=== PATIENT | female | born 1935 | race African-American/Black ===

== ENCOUNTER 2016-07-18 09:33 | Outpatient (CLI) | payer MEDICARE ==
[2016-07-18 09:57] LABS: Basophils % (Auto) 1.4 % (0.0-1.8); Eosinophils % (Auto) 2.2 % (0.0-4.3); Hematocrit 45.7 % (30.3-42.9); Hemoglobin 15.2 gm/dl (10.1-14.3); Mean Corpuscular HGB Conc 33 % (30-34); Mean Corpuscular Hemoglobin 31 pg (28-32); Mean Corpuscular Volume 92 fl (79-97); Platelet Count 174 K/mm3 (140-440); Red Blood Count 4.99 M/mm3 (3.65-5.03); Red Cell Distribution Width 13.8 % (13.2-15.2); White Blood Count 6.5 K/mm3 (4.5-11.0)
[2016-07-18 10:15] LABS: Alanine Aminotransferase 54 units/L (7-56); Albumin 4.3 g/dL (3.9-5); Albumin/Globulin Ratio 1.4 %; Alkaline Phosphatase 82 units/L (35-129); Anion Gap 21 mmol/L; BUN/Creatinine Ratio 32.85; Blood Urea Nitrogen 23 mg/dL (7-17); Calcium 9.2 mg/dL (8.4-10.2); Carbon Dioxide 26 mmol/L (22-30); Chloride 100.5 mmol/L (98-107); Cholesterol 180 mg/dL (50-199); Creatine Kinase 192 units/L (30-135); Glucose 148 mg/dL (65-100); HDL Cholesterol 66 mg/dL (40-59); LDL Cholesterol,Direct 86 mg/dL (50-130); Potassium 3.8 mmol/L (3.6-5.0); Sodium 144 mmol/L (137-145); Total Protein 7.4 g/dL (6.3-8.2); Triglycerides 141 mg/dL (2-149)
[2016-07-20 16:14] LABS: Vitamin D, 25-OH, Total 28 ng/mL (30-100)
== END 2016-07-18 09:34 | disposition home or self-care (01) ==
LOC: LAB 09:33
PROVIDERS: ATTEND Internal Medicine
DX: I10 Essential (primary) hypertension (principal); E78.5 Hyperlipidemia, unspecified
CPT/HCPCS: 36415; 80053; 80061; 82306; 82550; 84443; 85025

== ENCOUNTER 2017-01-09 11:46 | Emergency (ER) | payer MEDICARE ==
[2017-01-09] MEDS ORDERED: NACL 0.9% 500 ML 500 ML IV ONE (12:03)
--- NOTE | 2017-01-09 12:24 | XRay Report ---
CHEST 2 VIEWS INDICATION: Shortness of breath. COMPARISON: 12/21/2009 FINDINGS: Frontal and lateral chest radiographs demonstrate slight cardiomegaly/left ventricular prominence. Mild aortic knob calcifications. Normal mediastinal and hilar contours. Right hemidiaphragm minimally elevated. No pleural effusions or CHF. Demineralized bones with multilevel thoracic spondylosis. CONCLUSION: No acute chest process or significant interval change, as described. Thank you for the opportunity to participate in this patient's care.
[2017-01-09 12:44] LABS: Basophils % (Auto) 0.5 % (0.0-1.8); Eosinophils % (Auto) 0.2 % (0.0-4.3); Hematocrit 41.8 % (30.3-42.9); Hemoglobin 14.1 gm/dl (10.1-14.3); Mean Corpuscular HGB Conc 34 % (30-34); Mean Corpuscular Hemoglobin 31 pg (28-32); Mean Corpuscular Volume 93 fl (79-97); Platelet Count 182 K/mm3 (140-440); Red Cell Distribution Width 13.9 % (13.2-15.2); White Blood Count 13.9 K/mm3 (4.5-11.0)
[2017-01-09 12:54] LABS: INR 0.96 (0.87-1.13)
[2017-01-09 12:58] LABS: Anion Gap 18 mmol/L; BUN/Creatinine Ratio 26; Blood Urea Nitrogen 18 mg/dL (7-17); Calcium 9.1 mg/dL (8.4-10.2); Carbon Dioxide 32 mmol/L (22-30); Chloride 91.8 mmol/L (98-107); Glucose 208 mg/dL (65-100); Potassium 3.6 mmol/L (3.6-5.0); Sodium 138 mmol/L (137-145)
[2017-01-09 13:34] LABS: Bilirubin,Urine NEG (Negative); Blood,Urine NEG (Negative); Ketones,Urine NEG (Negative); Leukocyte Esterase,Urine LG (Negative); Mucus,Urine FEW /HPF; Nitrite,Urine NEG (Negative); Urobilinogen,Urine < 2.0 mg/dL (<2.0)
[2017-01-09 13:44] LABS: Partial Thromboplastin Time 37.6 Sec. (24.2-36.6)
[2017-01-09 13:54] LABS: Albumin 3.7 g/dL (3.9-5); Albumin/Globulin Ratio 1.1 %; Bilirubin,Direct 0.3 mg/dL (0-0.2); Bilirubin,Indirect 0.6 mg/dL; Bilirubin,Total 0.9 mg/dL (0.1-1.2); Total Protein 7.2 g/dL (6.3-8.2)
[2017-01-09] MEDS ORDERED: DUONEB *Not for PRN Use IH ONE ×2 (14:18→15:35)
--- NOTE | 2017-01-09 15:05 | Cat Scan Report ---
CT angiography of the chest including 3-D reconstructed images. History: Dyspnea. Findings: There is no evidence of pulmonary emboli. The lungs are free of acute infiltrates. Minimal bibasilar atelectasis is present. There is no pleural fluid. Images which include a portion of the upper abdomen and straight a calcified gallstone. There is generalized hypodensity of the liver parenchyma with a focal round cystic hypodensity with a focal 1.6 cm round hypodensity in the superior aspect of the left lobe of the liver. Impression: 1. No evidence of pulmonary emboli or other acute findings. 2. Incidental partially imaged abdominal findings including cholelithiasis, hepatic steatosis, and focal hepatic hypodensity, probably benign.
[2017-01-09 16:53] VITALS: BP 109/71
--- NOTE | 2017-01-09 19:09 | Emergency Department Report ---
ED General Adult HPI - General Chief complaint: Dyspnea/Respdistress Stated complaint: SOB Time Seen by Provider: 01/09/17 13:25 Source: patient, family Mode of arrival: Wheelchair Limitations: Language Barrier - History of Present Illness Initial comments: Patient states that she has been coughing and having wheezing for approximately 1 week. She went to [facility] and returned last night. She had more cough and wheezing after the flight. She has never used any bronchodilators before. She denied leg pain or swelling. She has had a previous knee replacement. She has no history of VTE. She states her sputum has been yellow and that there has been no hemoptysis. She is not acutely short of breath at this time. She feels as though she is wheezing. -: Gradual, week(s) Severity scale (0 -10): 0 Improves with: none Worsens with: none Associated Symptoms: denies other symptoms (denies chest pain abdominal pain and leg pain) Treatments Prior to Arrival: none - Related Data Home Medications Medication Instructions Recorded Confirmed Last Taken Ascorbic Acid [Vitamin C] 1,000 mg PO DAILY 08/25/13 01/09/17 08/24/13 Aspirin [Aspirin BABY CHEW TAB] 81 mg PO DAILY 08/25/13 01/09/17 08/25/13 06:00 Multivitamin [Multi-Vitamin Daily] 1 tab PO DAILY 08/25/13 01/09/17 08/24/13 Surry-3 Fatty Acids [Surry-3] 1,000 cap PO DAILY 08/25/13 01/09/17 08/24/13 amLODIPine [Norvasc] 10 mg PO DAILY 01/09/17 01/09/17 Unknown Previous Rx's Medication Instructions Recorded Last Taken Type Pravastatin Sodium [Pravastatin] 40 mg PO QHS #30 tablet 08/25/13 Unknown Rx ALBUTEROL Inhaler [ProAir HFA 2 puff IH QID PRN #1 inhalation 01/09/17 Unknown Rx Inhaler] Benzonatate [Tessalon Perles] 100 mg PO Q8HR PRN #14 capsule 01/09/17 Unknown Rx Sulfamethoxazole/Trimethoprim 1 each PO BID #14 tablet 01/09/17 Unknown Rx [Bactrim DS TAB] Allergies Allergy/AdvReac Type Severity Reaction Status Date / Time No Known Allergies Allergy Verified 01/09/17 11:49 ED Review of Systems ROS: Stated complaint: SOB Other details as noted in HPI Constitutional: denies: chills, fever Eyes: denies: eye pain, eye discharge, vision change ENT: denies: ear pain, throat pain, epistaxis Respiratory: see HPI, cough, shortness of breath. denies: wheezing Cardiovascular: denies: chest pain, palpitations Endocrine: no symptoms reported Gastrointestinal: denies: abdominal pain, nausea, diarrhea Genitourinary: denies: urgency, dysuria, discharge Musculoskeletal: denies: back pain, joint swelling, arthralgia Skin: denies: rash, lesions Neurological: denies: headache, weakness, paresthesias Psychiatric: denies: anxiety, depression Hematological/Lymphatic: denies: easy bleeding, easy bruising ED Past Medical Hx - Past Medical History Hx Hypertension: Yes (1987) Hx Diabetes: Yes (diet control) Additional medical history: HIGH CHOLESTROL - Surgical History Past Surgical History?: No - Social History Smoking Status: Never Smoker Substance Use Type: None - Medications Home Medications: Home Medications Medication Instructions Recorded Confirmed Last Taken Type Ascorbic Acid [Vitamin C] 1,000 mg PO DAILY 08/25/13 01/09/17 08/24/13 History Aspirin [Aspirin BABY CHEW TAB] 81 mg PO DAILY 08/25/13 01/09/17 08/25/13 06:00 History Multivitamin [Multi-Vitamin Daily] 1 tab PO DAILY 08/25/13 01/09/17 08/24/13 History Surry-3 Fatty Acids [Surry-3] 1,000 cap PO DAILY 08/25/13 01/09/17 08/24/13 History Pravastatin Sodium [Pravastatin] 40 mg PO QHS #30 tablet 08/25/13 01/09/17 Unknown Rx ALBUTEROL Inhaler [ProAir HFA 2 puff IH QID PRN #1 inhalation 01/09/17 Unknown Rx Inhaler] Benzonatate [Tessalon Perles] 100 mg PO Q8HR PRN #14 capsule 01/09/17 Unknown Rx Sulfamethoxazole/Trimethoprim 1 each PO BID #14 tablet 01/09/17 Unknown Rx [Bactrim DS TAB] amLODIPine [Norvasc] 10 mg PO DAILY 01/09/17 01/09/17 Unknown History ED Physical Exam - General Limitations: Language Barrier General appearance: alert, in no apparent distress - Head Head exam: Present: atraumatic, normocephalic - Eye Eye exam: Present: normal appearance, PERRL, EOMI. Absent: scleral icterus - ENT ENT exam: Present: mucous membranes moist - Neck Neck exam: Present: normal inspection. Absent: tenderness, meningismus - Respiratory Respiratory exam: Present: normal lung sounds bilaterally. Absent: respiratory distress - Cardiovascular Cardiovascular Exam: Present: regular rate, normal rhythm. Absent: systolic murmur, diastolic murmur, rubs, gallop - GI/Abdominal GI/Abdominal exam: Present: soft, normal bowel sounds. Absent: distended, tenderness, guarding, rebound, rigid - Extremities Exam Extremities exam: Present: normal inspection - Back Exam Back exam: Present: normal inspection. Absent: CVA tenderness (R), CVA tenderness (L) - Neurological Exam Neurological exam: Present: alert, oriented X3, CN II-XII intact. Absent: motor sensory deficit - Psychiatric Psychiatric exam: Present: normal affect, normal mood - Skin Skin exam: Present: warm, dry, intact, normal color. Absent: rash ED Course Vital Signs 01/09/17 01/09/17 01/09/17 11:50 12:26 12:30 Temperature 99.9 F H Pulse Rate 109 H 101 H 100 H Respiratory 28 H 27 H 25 H Rate Blood Pressure 134/74 124/70 O2 Sat by Pulse 94 91 91 Oximetry 01/09/17 01/09/17 01/09/17 12:41 12:45 13:00 Temperature Pulse Rate 100 H 106 H Respiratory 24 23 22 Rate Blood Pressure 129/71 133/82 O2 Sat by Pulse 92 91 98 Oximetry 01/09/17 01/09/17 01/09/17 13:15 13:30 13:46 Temperature Pulse Rate 97 H 99 H 106 H Respiratory 20 20 23 Rate Blood Pressure 135/79 127/73 127/73 O2 Sat by Pulse 96 97 97 Oximetry 01/09/17 01/09/17 01/09/17 14:00 14:16 15:06 Temperature Pulse Rate 114 H 94 H Respiratory 22 20 Rate Blood Pressure 132/82 124/88 124/88 O2 Sat by Pulse 98 93 94 Oximetry 01/09/17 01/09/17 01/09/17 15:15 15:30 15:46 Temperature Pulse Rate 95 H 101 H 108 H Respiratory 15 36 H 24 Rate Blood Pressure 116/72 116/72 124/88 O2 Sat by Pulse 93 92 85 Oximetry 01/09/17 01/09/17 01/09/17 16:00 16:15 16:30 Temperature Pulse Rate 96 H 105 H 107 H Respiratory 20 18 19 Rate Blood Pressure 114/56 121/63 109/71 O2 Sat by Pulse 91 84 91 Oximetry 01/09/17 16:46 Temperature Pulse Rate 106 H Respiratory 16 Rate Blood Pressure 109/71 O2 Sat by Pulse 90 Oximetry - Reevaluation(s) Reevaluation #1: She was giving him DuoNeb while in the emergency department her wheezing resolved. She did not complain of chest pain. 01/09/17 19:06 ED Medical Decision Making - Lab Data Result diagrams: 01/09/17 12:16 01/09/17 12:16 Laboratory Results - last 24 hr 01/09/17 01/09/17 01/09/17 12:16 12:16 12:16 WBC 13.9 H RBC 4.50 Hgb 14.1 Hct 41.8 MCV 93 MCH 31 MCHC 34 RDW 13.9 Plt Count 182 Lymph % (Auto) 15.5 [place] % (Auto) 7.4 H Eos % (Auto) 0.2 Baso % (Auto) 0.5 Lymph # 2.2 [place] # 1.0 H Eos # 0.0 Baso # 0.1 Seg Neutrophils % 76.4 H Seg Neutrophils # 10.6 H PT 13.3 INR 0.96 APTT D-Dimer VBG pH Sodium 138 Carbon Dioxide 32 H BUN 18 H Creatinine 0.7 Estimated GFR > 60 BUN/Creatinine Ratio 26 Glucose 208 H Lactic Acid Calcium 9.1 Magnesium Total Bilirubin Direct Bilirubin Indirect Bilirubin AST ALT Alkaline Phosphatase Troponin T < 0.010 NT-Pro-B Natriuret Pep Total Protein Albumin Albumin/Globulin Ratio Urine Color Urine Turbidity Urine pH Ur Specific Blue Urine Protein Urine Glucose (UA) Urine Ketones Urine Blood Urine Nitrite Urine Bilirubin Urine Urobilinogen Ur Leukocyte Esterase Urine WBC (Auto) Urine RBC (Auto) U Epithel Cells (Auto) Urine Mucus 01/09/17 01/09/17 01/09/17 12:16 12:16 12:16 WBC RBC Hgb Hct MCV MCH MCHC RDW Plt Count Lymph % (Auto) [place] % (Auto) Eos % (Auto) Baso % (Auto) Lymph # [place] # Eos # Baso # Seg Neutrophils % Seg Neutrophils # PT INR APTT 37.6 H D-Dimer 302.84 H VBG pH 7.403 Sodium Carbon Dioxide BUN Creatinine Estimated GFR BUN/Creatinine Ratio Glucose Lactic Acid 1.90 Calcium Magnesium Total Bilirubin Direct Bilirubin Indirect Bilirubin AST ALT Alkaline Phosphatase Troponin T NT-Pro-B Natriuret Pep Total Protein Albumin Albumin/Globulin Ratio Urine Color Urine Turbidity Urine pH Ur Specific Blue Urine Protein Urine Glucose (UA) Urine Ketones Urine Blood Urine Nitrite Urine Bilirubin Urine Urobilinogen Ur Leukocyte Esterase Urine WBC (Auto) Urine RBC (Auto) U Epithel Cells (Auto) Urine Mucus 01/09/17 01/09/17 01/09/17 12:16 12:55 13:42 WBC RBC Hgb Hct MCV MCH MCHC RDW Plt Count Lymph % (Auto) [place] % (Auto) Eos % (Auto) Baso % (Auto) Lymph # [place] # Eos # Baso # Seg Neutrophils % Seg Neutrophils # PT INR APTT D-Dimer VBG pH Sodium Carbon Dioxide BUN Creatinine Estimated GFR BUN/Creatinine Ratio Glucose Lactic Acid 1.80 Calcium Magnesium 2.00 Total Bilirubin 0.90 Direct Bilirubin 0.3 H Indirect Bilirubin 0.6 AST 35 ALT 35 Alkaline Phosphatase 96 Troponin T NT-Pro-B Natriuret Pep 555.8 Total Protein 7.2 Albumin 3.7 L Albumin/Globulin Ratio 1.1 Urine Color Yellow Urine Turbidity Clear Urine pH 5.0 Ur Specific Blue 1.020 Urine Protein 30 mg/dl Urine Glucose (UA) 50 Urine Ketones Neg Urine Blood Neg Urine Nitrite Neg Urine Bilirubin Neg Urine Urobilinogen < 2.0 Ur Leukocyte Esterase Lg Urine WBC (Auto) 21.0 H Urine RBC (Auto) 9.0 U Epithel Cells (Auto) < 1.0 Urine Mucus Few K 3.6 CL 91.8 AG 18 - EKG Data -: EKG Interpreted by Me EKG shows normal: sinus rhythm, axis, intervals, QRS complexes, ST-T waves Rate: tachycardia - EKG Data Inferior tissues consistent with old zone nonspecific changes 01/09/17 19:10 Critical care attestation.: If time is entered above; I have spent that time in minutes in the direct care of this critically ill patient, excluding procedure time. ED Disposition Clinical Impression: Acute bronchitis Qualifiers: Bronchitis organism: unspecified organism Qualified Code(s): J20.9 - Acute bronchitis, unspecified Reactive airways dysfunction syndrome Qualifiers: Asthma severity: mild Asthma persistence: intermittent Asthma complication type : uncomplicated Qualified Code(s): J45.20 - Mild intermittent asthma, uncomplicated UTI (urinary tract infection) Qualifiers: Urinary tract infection type: site unspecified Hematuria presence: without hematuria Qualified Code(s): N39.0 - Urinary tract infection, site not specified Disposition: TO HOME OR SELFCARE Is pt being admited?: No Does the pt Need Aspirin: No Condition: Stable Instructions: Acute Bronchitis (ED), Urinary Tract Infection in Women (ED) Additional Instructions: Follow-up on your urine culture with her primary care provider. Return as needed any acute change or worsening symptoms. R axis directed. Prescriptions: ALBUTEROL Inhaler [ProAir HFA Inhaler] 2 puff IH QID PRN #1 inhalation PRN Reason: Shortness Of Breath Benzonatate [Tessalon Perles] 100 mg PO Q8HR PRN #14 capsule PRN Reason: Cough Sulfamethoxazole/Trimethoprim [Bactrim DS TAB] 1 each PO BID #14 tablet Referrals: PRIMARY CARE, [Primary Care Provider] - 3-5 Days Time of Disposition: 19:11
== END 2017-01-09 19:29 | disposition home or self-care (01) ==
LOC: ED 11:46
DX: J20.9 Acute bronchitis, unspecified (principal); J45.20 Mild intermittent asthma, uncomplicated; N39.0 Urinary tract infection, site not specified; I10 Essential (primary) hypertension; E11.9 Type 2 diabetes mellitus without complications
CPT/HCPCS: 36415; 71020; 71275; 80048; 80074; 81001; 82140; 82805; 83735; 83880; 84484; 85025; 85379; 85610; 85730; 87040; 87086; 93005; 93010; 94640; 99285; Q9967

== ENCOUNTER 2017-02-20 15:38 | Outpatient (CLI) | payer MEDICARE ==
--- NOTE | 2017-02-20 16:12 | XRay Report ---
Bilateral knees, 8 views. Findings: Bilateral knee prostheses are in satisfactory position with no evidence of acute findings. There is no evidence of lucency adjacent to the prosthetic components. Both patellas are intact. No significant soft tissue abnormalities are seen. Impression: Normal postoperative findings status post bilateral arthroplasty.
== END 2017-02-20 15:39 | disposition home or self-care (01) ==
LOC: SPVIMAG 15:38
PROVIDERS: ATTEND Orthopaedic Surgery Sports Medicine
DX: M25.562 Pain in left knee (principal); I10 Essential (primary) hypertension; E78.5 Hyperlipidemia, unspecified; Z96.653 Presence of artificial knee joint, bilateral

== ENCOUNTER 2017-08-16 11:52 | Outpatient (CLI) | payer MEDICARE ==
--- NOTE | 2017-08-16 16:25 | Mammography Report ---
BONE DENSITY STUDY: Postmenopausal osteoporosis screening. DEFINITIONS: BMD = Bone Mineral Density T-score = BMD related to mean peak bone mass of young adult (mean expressed in Standard Deviation) Z-score = Age matched BMD expressed in SD World Health Organization (WHO) Diagnostic Criteria Normal T-score > -1 SD Osteopenia T-score between -1 and -2.4 SD Osteoporosis T-score -2.5 SD or below FINDINGS: The weighted average BMD of lumbar spine L1-L4 is 1.004 with a T-score of -0.4. The weighted average BMD of the left hip is 0.949 with a T-score of 0.1. The femoral neck BMD is 0.647 with a T. value score of -1.8. IMPRESSION: The patient's average T-score is diagnostic for normal bone density and low relative risk for fracture. NOTE: BMD is not the only risk factor for fracture; also consider factors such as the patient's age, risk of falling, previous osteoporotic fracture, family history of osteoporotic fractures, current smoker, and low body weight. Gill's triangle is a region of interest in femur, predominantly of trabecular bone. It is not a true anatomic site, and [facility] does not recommend its use clinically.
== END 2017-08-16 11:53 | disposition home or self-care (01) ==
LOC: SPVWC 11:52
PROVIDERS: ATTEND Family Medicine
DX: Z13.820 Encounter for screening for osteoporosis (principal); I10 Essential (primary) hypertension; E78.5 Hyperlipidemia, unspecified; E07.9 Disorder of thyroid, unspecified; Z78.0 Asymptomatic menopausal state
CPT/HCPCS: 77080

== ENCOUNTER 2018-12-15 10:52 | Outpatient (CLI) | payer MEDICARE ==
--- NOTE | 2018-12-15 12:33 | Magnetic Resonance Report ---
MRI LUMBAR SPINE WITHOUT CONTRAST INDICATION / CLINICAL INFORMATION: Low back pain; left leg radiculopathy TECHNIQUE: Multisequence, multiplanar images of the lumbar spine were obtained. COMPARISON: None available. FINDINGS: I am considering the lumbosacral junction as L5-S1. ALIGNMENT: Normal lumbar lordosis without significant scoliosis. VERTEBRAE:Normal marrow signal and vertebral body height for age. VISUALIZED SPINAL CORD: No significant abnormality. Conus ends at T12 vertebral body level. [id number] ANALYSIS: T10-T11 disc space is normal. Small bulging disc is seen at T11-T12 at T12-L1 disc levels. L1-2: Nonlateralizing bulging disc is seen. Neuroforamina are normal. L2-3: Disc herniation is seen on the right side extending from the right paramedian area towards the right lateral recess. Dural sac is compressed. L3-4: Bulging osteophyte is seen on the left side. Degenerative changes are seen in the interspinous ligament. Left foraminal bulging disc is seen. Mild ligamentous hypertrophy is seen. L4-5: Minimal spondylolisthesis seen.. Broad-based disc herniation is seen towards the right lateral recess displacing the dural sac. L5-S1: Bilateral facet joint degenerative changes are seen. Neuroforamina are normal. PARASPINAL SOFT TISSUES: No significant abnormality. ADDITIONAL FINDINGS: None. IMPRESSION: Disc herniation in the right paramedian area at L2-L3 disc level Broad-based disc herniation at L4-L5 disc level towards the right side. Signer Name: Blayne Camarena MD Signed: 12/15/2018 12:29 PM Workstation Name: [id number]
== END 2018-12-15 10:53 | disposition home or self-care (01) ==
LOC: MRI 10:52
PROVIDERS: ATTEND Physical Medicine & Rehabilitation
DX: M47.26 Other spondylosis with radiculopathy, lumbar region (principal); M51.26 Other intervertebral disc displacement, lumbar region; M25.78 Osteophyte, vertebrae; I10 Essential (primary) hypertension; E78.5 Hyperlipidemia, unspecified; M19.90 Unspecified osteoarthritis, unspecified site
CPT/HCPCS: 72148